=== PATIENT | female | born 1940 | race Caucasian/White ===

== ENCOUNTER 2017-06-06 07:32 | Observation (INO) | payer MEDICARE ==
[~2017-06-06] VITALS: Ht 175.3 cm; Wt 69.0 kg
[2017-06-06] VITALS (9 sets, daily range): BP systolic 122–152; BP diastolic 71–85; PULSE 63–72; RESP 14–18; O2SAT 93–98
--- NOTE | 2017-06-06 07:38 | ED.REPORT ---
HPI-Dizziness / Weakness Date of Service Jun 06, 2017 ED Provider: Romie Mann Patient is a 76 year old female with a hx of hyperlipidemia and hypothyroid who presents to the ED via EMS complaining of dizziness onset this morning. Pt reports she got up this morning feeling fine, went to make coffee, and then felt poorly. She then fell against her couch and vomited. Her dizziness is worse with opening her eyes and movement but is relieved by closing her eyes and staying still. She denies diaphoresis, chest pain, SOB, headache, focal weakness, numbness, confusion, slurred speech, cough, hematuria, hematochezia, hematemesis, ear pain, or any other symptoms. She received 8mg of Zofran en route. Nursing Notes Stated Complaint: VERTIGO Nursing Notes Reviewed: Yes (Araca not reconciled) Allergies: Coded Allergies: No Known Allergies (Unverified , 06/06/17) Scheduled Levothyroxine (Levothyroxine) 25 Mcg Tablet 25 MCG PO MORNING Lovastatin (Lovastatin) 40 Mg Tablet 40 MG PO QPM Oxybutynin Chloride (Oxybutynin Chloride) 5 Mg Tablet 5 MG PO MORNING Scheduled PRN Estrogens Conjugated (Premarin) 1 Gm Vagcream 1 APPLIC VAGINAL PRN Vaginal discomfort General Time Seen by MD: 07:39 Chief Complaint Dizzy Hx Obtained From: Patient, EMS Arrived By: Ambulance Onset Occurred: Just prior to arrival Symptom Duration: Since onset Severity: Current: No pain currently Severity: Maximum: No pain Associated with: Reports: Vomiting Pertinent Negative: Pt denies other symptoms Similar Sx Previous: No Past Medical History Past Medical History Hypothyroid hyperlipidemia Past Surgical History Reports: Hysterectomy Smoking History Never Smoker Social History Alcohol Use: Denies alcohol use Drug Use: Denies drug use Other Social History: Ambulatory Status Independent Review of Systems Ears / Nose / Throat: Denies: Earache bilateral Respiratory: Denies: Non-productive cough, Shortness of breath Cardiovascular: Denies: Chest pain GI: Reports: Nausea, Vomiting, Denies: Hematemesis, Hematochezia Skin: Denies Diaphoresis Neurologic: Reports: Dizziness, Denies: Confusion, Focal weakness, Headache, Numbness, Slurred speech Complete sys rev & neg: except as marked. Female: Denies: Hematuria Physical Exam Initial Vital Signs Vital Signs (First) Date Time Temp Pulse Resp B/P Pulse Ox O2 Delivery O2 Flow Rate FiO2 06/06/17 07:47 36.4 66 17 122/71 95 Room Air Initial VS: Reviewed Neck: Supple Abdomen / GI: Soft, Non-tender Skin: Warm, Dry Psychiatric: Mood/affect normal, Behavior normal, Normal thought content General/Constitutional: Awake, Alert Holding very still, eyes closed, clutching an emesis bag Head / Eyes: Atraumatic, Normocephalic Very trace lateral nystagmus bilaterally Respiratory / Chest: Atraumatic, Breath sounds NL, Breath sounds = bilat, No respiratory distress Cardiovascular: Heart rate NL, Regular rhythm, Heart sounds NL Neurologic: Oriented X3, Speech NL, No motor deficits, No sensory deficits, CN II - XII intact Interpretation & Diagnostics Lab Results Interpretation Result Diagram: 06/06/17 0755 06/06/17 0755 Test 06/06/17 07:55 White Blood Count 6.1th/mm3 (3.8-10.1) Red Blood Count 4.59mil/mm3 (3.90-5.20) Hemoglobin 14.1g/dL (12.0-15.6) Hematocrit 42.3% (35.0-46.0) Mean Corpuscular Volume 92.2fL (81-100) Mean Corpuscular Hemoglobin 30.7pg (27.0-35.0) Mean Corpuscular Hemoglobin Concent 33.3% (32.0-37.0) Red Cell Distribution Width 12.5% (12.3-15.4) Platelet Count 212bil/L (150-400) Neutrophils (%) (Auto) 23.5% (40-74) Lymphocytes (%) (Auto) 54.2% (14-46) Monocytes (%) (Auto) 17.6% (4-12) Eosinophils (%) (Auto) 3.9% (0-5) Basophils (%) (Auto) 0.8% (0-3) Sodium Level 140mEq/L (134-144) Potassium Level 3.5mEq/L (3.5-5.2) Chloride Level 102mEq/L (97-108) Carbon Dioxide Level 21mmol/L (18-29) Blood Urea Nitrogen 17mg/dL (8-27) Creatinine 0.75mg/dL (0.57-1.00) Estimat Glomerular Filtration Rate 108mL/min (>59) Glucose Level 147mg/dL (60-99) Calcium Level 9.6mg/dL (8.5-10.1) Total Bilirubin 0.3mg/dL (0.0-1.2) Aspartate Amino Transf (AST/SGOT) 35U/L (0-50) Alanine Aminotransferase (ALT/SGPT) 27U/L (0-32) Alkaline Phosphatase 76U/L (25-165) Total Protein 7.3g/dL (6.4-8.4) Albumin 4.1g/dL (3.4-5.0) Lab Results Interpretation: cbc nl cmp nl CT Head Interpretation IMPRESSION: No acute process. No explanation for vertigo. Dictated by: Lacie Brice M.D. on 06/06/2017 at 8:21 Approved by: Lacie Brice M.D. on 06/06/2017 at 8:22 Study: Head CT no contrast Interpretation / Wet Read by: Interpret - Radiologist Re-Eval/Medical Decision Med Decision/Clinical Course This is a 76F who presents with sudden onset of vertigo with dizziness, nausea, and inability to ambulate. She fell into the couch trying to ambulate - but suffered no injury. She reports feeling better if she holds still and keeps her eyes closed. She denies MELCHOR, anticoagulant use, or focal deficit. She denies ETOH or drugs. She denies any recent URI or ear symptoms. On exam she is holding still with eyes closed, but has no motor symptoms, CN II- XII is negative, but she can not turn her head to either side or sit up without precipitating symptoms. Her ear exam is normal. She received meclizine PO and parenteral promethazine and benadryl, and stated she felt much better. But attempts to road test were met with recurrent symptoms just trying to sit the patient up. At this point given persistance of severe symptoms, admission is warranted. She is receiving lorazepam for additional support. CT Brain and lab work is mormal. MRI may be considered in AM (It is Wednesday), and case has been discussed with hospitalist. Source of Hx: Old records, EMS Re-Evaluation/Progress #1: Time of Eval: 10:06 Re-Evaluation/Progress Note: Rechecked pt who is no longer nauseous. She is feeling slightly better now. Discussed plan for road test and possible plan for admission. Patient understands and agrees with plan. All questions addressed at this time. Re-Evaluation/Progress #2: Time of Eval: 10:10 Re-Evaluation/Progress Note: Pt failed her road test and could not get out of bed. Will be admitted. Consultation : Referral / Consult Name: Deanne Kapoor MD Consulted With: Hospitalist Call Returned at: 10:17 Second Vp Hr Assessment: Will see patient, Agrees with eval, Agrees with plan, Accepts admit Note: Discussed pt's case. Accepts admit Differential Diagnosis: Positive: Vertigo, peripheral, Negative: Acute coronary syndrome, Anemia, Carbon monoxide poisoning, Cerebrovascular accident, Dehydration, Dysrhythmia, Electrolyte disorder, Heat exhaustion, Heat stroke, Hyperventilation syndrome, Hypoglycemia, Intracranial bleed, Labyrinthitis, Meniere's disease, Migraine disorder, Sepsis, Subarachnoid hemorrhage, Tick paralysis Counseled Regarding: Diagnosis, Lab results, Need for admission Patient Discharge & Departure Impression: Primary Impression: Vertigo Disposition: ADMITTED TO HOSPITAL Discharge Condition All VS Reviewed: Yes Condition: Stable Referrals: Vonnie Ness MD (PCP) Tavon Attestation Portions of this note were transcribed by Manfred Smith. I, Dr. Mann personally performed the history, physical exam and medical decision-making; I reviewed and confirmed the accuracy of the information in the transcribed note. Signed by: Tavon Naranjo, 06/06/17 Vonnie Ness MD, Matthew F MD Jun 06, 2017 07:38 MANFRED SMITH Jun 06, 2017 07:44
[2017-06-06] MEDS ORDERED: Promethazine Inj 12.5 MG in Dextrose 5%-Pha MIX 50 ML IV ONE (07:50)
[2017-06-06 08:03] LABS: BASOPHILS % (AUTO) 0.8 % (0-3); EOSINOPHILS % (AUTO) 3.9 % (0-5); MONOCYTES % (AUTO) 17.6 % (4-12); Mean Corpuscular Hemoglobin 30.7 pg (27.0-35.0); Mean Corpuscular Volume 92.2 fL (81-100); NEUTROPHILS % (AUTO) 23.5 % (40-74); Platelet Count 212 bil/L (150-400)
--- NOTE | 2017-06-06 08:24 | DRSVH ---
PROCEDURE: CT BRAIN WITHOUT CONTRAST ([id number]) INDICATIONS: vertigo TECHNIQUE: Noncontrast 4.5 mm thick angled axial sections acquired from the foramen magnum to the vertex, with c oronal reformats. COMPARISON: None. FINDINGS: Image quality: Excellent. CSF spaces: Basal cisterns are patent. No extra-axial fluid collections. The ventricles are symmet mick in size and shape. Brain: No intracranial bleeds or masses. There is cerebral volume loss for age, with resultant vent ricular and sulcal prominence. There are periventricular and deep white matter chronic small vessel ischemic changes. There is intracranial internal carotid artery atherosclerosis. Skull and face: Calvarium and visualized facial bones appear intact, without suspicious lesions. Sinuses: Visualized sinuses and mastoids are clear. IMPRESSION: No acute process. No explanation for vertigo. Dictated by: Lacie Brice M.D. on 06/06/2017 at 8:21 Approved by: Lacie Brice M.D. on 06/06/2017 at 8:22
[2017-06-06] MEDS ORDERED: OXYB5TAB10 PO (10:15)
[2017-06-06] MEDS ORDERED: LOVA40TA PO (10:15)
[2017-06-06] MEDS ORDERED: LEVO25TA5 PO (10:15)
[2017-06-06] MEDS ORDERED: PREC VAGINAL (10:15)
[2017-06-06] MEDS: 0.9% Sodium Chloride 1,000 ML IV SCH ×2 (11:19→22:00)
[2017-06-06] MEDS ORDERED: Alum-Mag Hydrox-Simeth 30 mL Suspension PO PRN ×2 (11:20→13:45)
[2017-06-06] MEDS ORDERED: Ondansetron 2 mg/mL 2 mL Inj IVPUSH PRN ×2 (11:20→13:45)
--- NOTE | 2017-06-06 11:30 | NUR ---
admitted to room 1017 from ED alert, oriented, states "only dizzy when I get up". VSS, BP136/79, denies nausea at this time, but feels drowsy, received Lorazepam in ER
[2017-06-06] MEDS ORDERED: Polyethylene Glycol (PEG) 17 Gm Powder PO PRN (13:45)
--- NOTE | 2017-06-06 13:56 | PCM.HPMED ---
Subjective Date of Service Jun 06, 2017 Primary Provider: Admitting Physician: Deanne Kapoor MD Primary Care Physician: Vonnie Ness MD Attending Physician: Deanne Kapoor MD Admit Status: From the Emergency Department, 23-Hour Observation, Admit to [place] Team, Remote Telemetry Chief Complaint: Acute onset vertigo History of Present Illness: This 76-year-old female whose past medical history is significant for hyperlipidemia and hypothyroidism. She was in her usual state of health woke up this morning and was doing fine was sitting in a chair doing some computer work and started to with the turning of her head have vertigo. She had some nausea with the vertigo. She has never had episodes like this before. If she was still did not seem to occur but movement of the head in either direction would elicit it. She notes no numbness tingling or weakness. Her evaluation in the emergency room included CT of head without contrast which did not show any acute abnormalities. He denies any chest pain or headaches. Eyes any shortness of breath or lightheadedness. She has had no alteration in bowel movements. She has had no change in her medications. She did try to stand up with this occurred and fell into her couch and had no injury sustained. Review of Systems: She denies any fevers or chills. All other review of systems are reviewed and are negative except for as in history of present illness. Allergies Coded Allergies: No Known Allergies (Unverified , 06/06/17) Home Medications Levothyroxine 25 g by mouth daily Lovastatin 40 mg by mouth daily Oxybutynin 5 mg by mouth in a.m. daily Premarin cream intravaginally when necessary PMH Hypothyroidism hyperlipidemia Surgical History Status post hysterectomy Family History Father with a history of heart attack at the age of 80 Mother of colon cancer at the age of 91 Social History Hx Alcohol Use: No Hx Substance Use: No Hx Tobacco Use: No Smoking Status: Never Smoker Living Arrangement: with Family Exam Vital Signs Vital Sign - Last Date Time Temp Pulse Resp B/P Pulse Ox O2 Delivery O2 Flow Rate FiO2 06/06/17 13:31 36.8 72 18 152/85 96 Room Air Exam Constitutional: 76-year-old female who is appears in no acute distress Head: Normocephalic atraumatic Eyes: PERRLA DC EOMI Mouth: No lesions Neck: Carotids this over 4 without bruits Chest: Clear to auscultation Cor: Regular rate and rhythm S1-S2 without murmur Abdomen: Soft nontender bowel sounds present Extremities: No pedal edema Skin: No rashes Psych: Mood and affect are appropriate Neuro: She is alert and oriented 3, motor strength is intact bilaterally cranial nerves II through XII are intact Lab and Diagnostics Labs Laboratory Tests 72 Hours Test 06/06/17 07:55 White Blood Count 6.1th/mm3 (3.8-10.1) Red Blood Count 4.59mil/mm3 (3.90-5.20) Hemoglobin 14.1g/dL (12.0-15.6) Hematocrit 42.3% (35.0-46.0) Mean Corpuscular Volume 92.2fL (81-100) Mean Corpuscular Hemoglobin 30.7pg (27.0-35.0) Mean Corpuscular Hemoglobin Concent 33.3% (32.0-37.0) Red Cell Distribution Width 12.5% (12.3-15.4) Platelet Count 212bil/L (150-400) Neutrophils (%) (Auto) 23.5% (40-74) Lymphocytes (%) (Auto) 54.2% (14-46) Monocytes (%) (Auto) 17.6% (4-12) Eosinophils (%) (Auto) 3.9% (0-5) Basophils (%) (Auto) 0.8% (0-3) Sodium Level 140mEq/L (134-144) Potassium Level 3.5mEq/L (3.5-5.2) Chloride Level 102mEq/L (97-108) Carbon Dioxide Level 21mmol/L (18-29) Blood Urea Nitrogen 17mg/dL (8-27) Creatinine 0.75mg/dL (0.57-1.00) Estimat Glomerular Filtration Rate 108mL/min (>59) Glucose Level 147mg/dL (60-99) Calcium Level 9.6mg/dL (8.5-10.1) Total Bilirubin 0.3mg/dL (0.0-1.2) Aspartate Amino Transf (AST/SGOT) 35U/L (0-50) Alanine Aminotransferase (ALT/SGPT) 27U/L (0-32) Alkaline Phosphatase 76U/L (25-165) Total Protein 7.3g/dL (6.4-8.4) Albumin 4.1g/dL (3.4-5.0) Result Diagram: 06/06/17 0755 06/06/17 0755 X-Rays, CTs and MRIs PROCEDURE: CT BRAIN WITHOUT CONTRAST ([id number]) INDICATIONS: vertigo TECHNIQUE: Noncontrast 4.5 mm thick angled axial sections acquired from the foramen magnum to the vertex, with coronal reformats. COMPARISON: None. FINDINGS: Image quality: Excellent. CSF spaces: Basal cisterns are patent. No extra-axial fluid collections. The ventricles are symmetric in size and shape. Brain: No intracranial bleeds or masses. There is cerebral volume loss for age , with resultant ventricular and sulcal prominence. There are periventricular and deep white matter chronic small vessel ischemic changes. There is intracranial internal carotid artery atherosclerosis. Skull and face: Calvarium and visualized facial bones appear intact, without suspicious lesions. Sinuses: Visualized sinuses and mastoids are clear. IMPRESSION: No acute process. No explanation for vertigo. Dictated by: Lacie Brice M.D. on 06/06/2017 at 8:21 Approved by: Lacie Brice M.D. on 06/06/2017 at 8:22 12-lead ECG EKG reviewed by myself is pending at the time of this dictation Assessment & Plan #Vertigo, acute, present on admission -We will treat with meclizine when necessary, Ativan when necessary -Check MRI stroke protocol in a.m. -PT consultation in a.m. after MRI -Initiate ASA 81 mg by mouth daily for possibility of CVA # Hypothyroidism, chronic, present on admission -Check TSH and thyroid panel #HyperLipidemia, acute, present on admission -We will go ahead and continue with her lovastatin -Check fasting a.m. lipid panel # DVT prophylaxis -Subcutaneous prophylactic Lovenox # CODE STATUS -Full code Pain Evaluation: Adequate Pain Control VTE Prophylaxis: Sub-Q Enoxaparin Resuscitation Status: CPR: Attempt Resuscitation Time spent 60 minute Deanne Kapoor MD Jun 06, 2017 13:56
[2017-06-06] MEDS ORDERED: LORazepam 1 mg Tablet PO PRN (14:10)
--- NOTE | 2017-06-06 16:34 | DRSVH ---
PROCEDURE: MRI STROKE PROTOCOL ([id number]) Pre- and post-contrast brain MRI, non-contrast brain MR angiogram, pre- and postcontrast neck MR mell ogram INDICATIONS: vertigo TECHNIQUE: Brain: Noncontrast axial T1 spin echo, axial T2 fast spin echo, sagittal and axial FLAIR, coronal T2 fast spin echo, axial gradient echo, axial diffusion and ADC through the brain. After the administr ation of contrast, axial 3D VIBE of the cranial vasculature and brain. Brain MRA: Non-contrast 3-D time of flight MR angiogram, with multiple lsnhvnz-vewowjcke-xicewxftmc (MIP) reformats performed. Neck MRA: Axial and sagittal TruFISP through the neck. Coronal dynamic MR angiogram during administ ration of contrast in the arterial and venous phases, with 3-dimenstional sfbqmwl-omzvgsvyv-aqenldzka n (MIP) reformats constructed from subtraction images. COMPARISON: Comparison head CT 06/06/17 reviewed. FINDINGS: Image quality: Excellent. BRAIN: CSF spaces: Ventricles are normal in size and shape. Basal cisterns are patent. No extra-axial flu id collections. Brain: No intracranial bleeds or mass effects. Bueno-white matter interface is normal. Diffusion we ighted images show no acute ischemic insults. Brainstem appears normal. Normal intravascular flow v oids are present. No abnormal intracranial enhancement. Skull and face: Calvarial marrow signal is normal. Orbits appear normal. Sinuses: Sinuses and mastoids are clear. BRAIN MR ANGIOGRAM: Anterior circulation: Intracranial internal carotid arteries are normal in size and enhancement. Th e flow within the paired anterior cerebral arteries is normal and symmetric. The flow within the mid dle cerebral arteries is normal and symmetric. The anterior communicating artery is seen. No stenos es, occlusions, or aneurysms. Posterior circulation: The visualized portions of the vertebral arteries demonstrate normal caliber, and join to form a normal appearing basilar artery. The flow within the posterior cerebral arteries is normal and symmetric. No stenoses, occlusions, or aneurysms. NECK MR ANGIOGRAM: Carotids: Great vessels demonstrate a conventional anatomy as they arise from the aortic arch. The origins of the common carotid arteries appear patent. The calibers and courses of both common caroti d arteries are normal. The bifurcation regions appear normal bilaterally. The internal carotid daryl gabbi demonstrate normal course and caliber. Posterior circulation: The origins of the vertebral arteries appear patent. More superior portions of both vertebral arteries demonstrate normal course and caliber, and join to form a normal appearing basilar artery. Miscellaneous: Subclavian arteries appear patent. Pre-contrast images through the neck show no soft tissue abnormalities except at the right vallecula where a 1.3 cm rounded fluid-rich masslike struct ure is present. IMPRESSION: BRAIN MRI: Normal for age, source of vertigo is not found. BRAIN MR ANGIOGRAM: Normal intracranial MR angiogram. NECK MR ANGIOGRAM: The cervical MR angiogram shows no vascular abnormality but there is a 1.3 cm rou nded masslike structure superimposed on the anatomic position of the right vallecula. It is possible that this simply represents a mucosal cyst but the imaging characteristics of the abnormality are in completely evaluated (it was identified on the cattle dealer views for the MR cervical angiogram). Direct vi sualization by laryngoscopy would be recommended and depending on the clinical status contrast-enhanc ed CT scanning through this area also likely is warranted. The estimate of stenosis included in the report of the imaging study was calculated using the NASCET method Dictated by: Kota Wheeler M.D. on 06/06/2017 at 16:22 Approved by: Kota Wheeler M.D. on 06/06/2017 at 16:33
--- NOTE | 2017-06-06 16:43 | NUR ---
ataxia? when pt stands to get on commode, she has lack of coordination. She is so wobbly that staff needs to hold onto her so she doesn't fall.
--- NOTE | 2017-06-06 18:56 | NUR ---
TOM explained and signed. Copy of TOM and Medicare self administered medication information given to pt.
[2017-06-07 04:36] VITALS: BP 116/71; PULSE 64; RESP 16; O2SAT 97
--- NOTE | 2017-06-07 06:14 | NUR ---
neuro: pt. ambulated to bathroom this morning with minimal stand-by assist, balance and gait were steady, pt. said she felt like she could walk without having vertigo and losing her balance.
[2017-06-07] MEDS: 0.9% Sodium Chloride 1,000 ML IV SCH (07:19)
[2017-06-07 07:53] VITALS: BP 154/84; PULSE 61; RESP 20; O2SAT 95
--- NOTE | 2017-06-07 08:54 | PCM.DIMED ---
Discharge Instructions Date of Service Jun 07, 2017 Dates of Hospitalization Jun 06, 2017 at 10:24 Discharge Diagnosis Discharge Diagnosis Acute vertigo of inner ear etiology Test Results Test Results Patient did have a questionable abnormality possible mucosal cysts seen in the vallecula epiglottis and recommend further outpatient workup per PCP Diet Discharge Diet: Heart Healthy Activity Discharge Activity: Other (progress as tolerated) Call your provider Call your provider for: Fever or Chills, Shortness of breath, Bleeding, Chest pain, Vomitting, Excessive diarrhea, Weakness (unilateral) Patient Instructions Follow-up Provider: Vonnie Ness MD Follow-up with PCP in: Other (in 4-5 days sooner if problems) Deanne Kapoor MD Jun 07, 2017 08:54
[2017-06-07] MEDS ORDERED: MECL-114 PO (08:55)
--- NOTE | 2017-06-07 09:04 | PCM.DC.MED ---
Discharge Summary Date of Service Jun 07, 2017 Dates of Hospitalization Date of Hospital Admission Jun 06, 2017 at 10:24 Date of Discharge: Jun 07, 2017 Providers: Admitting Physician: Deanne Kapoor MD Primary Care Physician: Vonnie Ness MD Attending Physician: Deanne Kapoor MD Diagnosis at Time of Discharge Diagnosis at Time of Discharge Acute vertigo of inner ear etiology Procedures XRay, CTs & MRIs PROCEDURE: CT BRAIN WITHOUT CONTRAST ([id number]) INDICATIONS: vertigo TECHNIQUE: Noncontrast 4.5 mm thick angled axial sections acquired from the foramen magnum to the vertex, with coronal reformats. COMPARISON: None. FINDINGS: Image quality: Excellent. CSF spaces: Basal cisterns are patent. No extra-axial fluid collections. The ventricles are symmetric in size and shape. Brain: No intracranial bleeds or masses. There is cerebral volume loss for age , with resultant ventricular and sulcal prominence. There are periventricular and deep white matter chronic small vessel ischemic changes. There is intracranial internal carotid artery atherosclerosis. Skull and face: Calvarium and visualized facial bones appear intact, without suspicious lesions. Sinuses: Visualized sinuses and mastoids are clear. IMPRESSION: No acute process. No explanation for vertigo. Dictated by: Lacie Brice M.D. on 06/06/2017 at 8:21 Approved by: Lacie Brice M.D. on 06/06/2017 at 8:22 PROCEDURE: MRI STROKE PROTOCOL ([id number]) Pre- and post-contrast brain MRI, non-contrast brain MR angiogram, pre- and postcontrast neck MR angiogram INDICATIONS: vertigo TECHNIQUE: Brain: Noncontrast axial T1 spin echo, axial T2 fast spin echo, sagittal and axial FLAIR, coronal T2 fast spin echo, axial gradient echo, axial diffusion and ADC through the brain. After the administration of contrast, axial 3D VIBE of the cranial vasculature and brain. Brain MRA: Non-contrast 3-D time of flight MR angiogram, with multiple maximum- intensity-projection (MIP) reformats performed. Neck MRA: Axial and sagittal TruFISP through the neck. Coronal dynamic MR angiogram during administration of contrast in the arterial and venous phases, with 3-dimenstional jxdmllf-sysjpqiem-jrdefzmtim (MIP) reformats constructed from subtraction images. COMPARISON: Comparison head CT 06/06/17 reviewed. FINDINGS: Image quality: Excellent. BRAIN: CSF spaces: Ventricles are normal in size and shape. Basal cisterns are patent. No extra-axial fluid collections. Brain: No intracranial bleeds or mass effects. Bueno-white matter interface is normal. Diffusion weighted images show no acute ischemic insults. Brainstem appears normal. Normal intravascular flow voids are present. No abnormal intracranial enhancement. Skull and face: Calvarial marrow signal is normal. Orbits appear normal. Sinuses: Sinuses and mastoids are clear. BRAIN MR ANGIOGRAM: Anterior circulation: Intracranial internal carotid arteries are normal in size and enhancement. The flow within the paired anterior cerebral arteries is normal and symmetric. The flow within the middle cerebral arteries is normal and symmetric. The anterior communicating artery is seen. No stenoses, occlusions, or aneurysms. Posterior circulation: The visualized portions of the vertebral arteries demonstrate normal caliber, and join to form a normal appearing basilar artery. The flow within the posterior cerebral arteries is normal and symmetric. No stenoses, occlusions, or aneurysms. NECK MR ANGIOGRAM: Carotids: Great vessels demonstrate a conventional anatomy as they arise from the aortic arch. The origins of the common carotid arteries appear patent. The calibers and courses of both common carotid arteries are normal. The bifurcation regions appear normal bilaterally. The internal carotid arteries demonstrate normal course and caliber. Posterior circulation: The origins of the vertebral arteries appear patent. More superior portions of both vertebral arteries demonstrate normal course and caliber, and join to form a normal appearing basilar artery. Miscellaneous: Subclavian arteries appear patent. Pre-contrast images through the neck show no soft tissue abnormalities except at the right vallecula where a 1.3 cm rounded fluid-rich masslike structure is present. IMPRESSION: BRAIN MRI: Normal for age, source of vertigo is not found. BRAIN MR ANGIOGRAM: Normal intracranial MR angiogram. NECK MR ANGIOGRAM: The cervical MR angiogram shows no vascular abnormality but there is a 1.3 cm rounded masslike structure superimposed on the anatomic position of the right vallecula. It is possible that this simply represents a mucosal cyst but the imaging characteristics of the abnormality are incompletely evaluated (it was identified on the gig tender views for the MR cervical angiogram). Direct visualization by laryngoscopy would be recommended and depending on the clinical status contrast-enhanced CT scanning through this area also likely is warranted. The estimate of stenosis included in the report of the imaging study was calculated using the NASCET method Dictated by: Kota Wheeler M.D. on 06/06/2017 at 16:22 Approved by: Kota Wheeler M.D. on 06/06/2017 at 16:33 ECG 12 Lead EKG reviewed by myself is pending at the time of this dictation Brief History This 76-year-old female whose past medical history is significant for hyperlipidemia and hypothyroidism. She was in her usual state of health woke up this morning and was doing fine was sitting in a chair doing some computer work and started to with the turning of her head have vertigo. She had some nausea with the vertigo. She has never had episodes like this before. If she was still did not seem to occur but movement of the head in either direction would elicit it. She notes no numbness tingling or weakness. Her evaluation in the emergency room included CT of head without contrast which did not show any acute abnormalities. He denies any chest pain or headaches. Eyes any shortness of breath or lightheadedness. She has had no alteration in bowel movements. She has had no change in her medications. She did try to stand up with this occurred and fell into her couch and had no injury sustained. Hospital Course #Vertigo, acute, present on admission -We will treat with meclizine when necessary, -Check MRI stroke protocol showed no significant abnormalities although please patient will need outpatient evaluation for questionable abnormality in the right vallecula epiglottic. -PT consultation to be done prior to patient leaving the hospital today for treatment of vertigo of inner ear etiology -Patient's symptoms did improve during her hospital course and will be able to be discharged this morning of June 07 # Hypothyroidism, chronic, present on admission -Continue home medication regimen #HyperLipidemia, acute, present on admission -We will go ahead and continue with her lovastatin -Check fasting a.m. lipid panel and see results above # DVT prophylaxis -Subcutaneous prophylactic Lovenox # CODE STATUS -Full code Exam Vital Signs (Last) Date Time Temp Pulse Resp B/P Pulse Ox O2 Delivery O2 Flow Rate FiO2 06/07/17 07:53 36.6 61 20 154/84 95 Room Air Exam Constitutional: 76-year-old female in no acute distress Head: Normocephalic atraumatic Chest: Clear to auscultation Cor: Regular rate and rhythm S1-S2 Abdomen: Soft nontender bowel sounds present Extremities: No pedal edema Psych: Mood and affect are appropriate Skin: No rashes Neuro: Alert and oriented 3, motor strength is intact bilaterally Test 06/06/17 07:55 06/07/17 05:12 White Blood Count 6.1th/mm3 (3.8-10.1) Red Blood Count 4.59mil/mm3 (3.90-5.20) Hemoglobin 14.1g/dL (12.0-15.6) Hematocrit 42.3% (35.0-46.0) Mean Corpuscular Volume 92.2fL (81-100) Mean Corpuscular Hemoglobin 30.7pg (27.0-35.0) Mean Corpuscular Hemoglobin Concent 33.3% (32.0-37.0) Red Cell Distribution Width 12.5% (12.3-15.4) Platelet Count 212bil/L (150-400) Neutrophils (%) (Auto) 23.5% (40-74) Lymphocytes (%) (Auto) 54.2% (14-46) Monocytes (%) (Auto) 17.6% (4-12) Eosinophils (%) (Auto) 3.9% (0-5) Basophils (%) (Auto) 0.8% (0-3) Sodium Level 140mEq/L (134-144) Potassium Level 3.5mEq/L (3.5-5.2) Chloride Level 102mEq/L (97-108) Carbon Dioxide Level 21mmol/L (18-29) Blood Urea Nitrogen 17mg/dL (8-27) Creatinine 0.75mg/dL (0.57-1.00) Estimat Glomerular Filtration Rate 108mL/min (>59) Glucose Level 147mg/dL (60-99) Calcium Level 9.6mg/dL (8.5-10.1) Total Bilirubin 0.3mg/dL (0.0-1.2) Aspartate Amino Transf (AST/SGOT) 35U/L (0-50) Alanine Aminotransferase (ALT/SGPT) 27U/L (0-32) Alkaline Phosphatase 76U/L (25-165) Total Protein 7.3g/dL (6.4-8.4) Albumin 4.1g/dL (3.4-5.0) Triglycerides Level 96mg/dL (0-149) Cholesterol Level 158mg/dL (100-199) LDL Cholesterol, Calculated 74.800mg/dL (0-99) VLDL Cholesterol 19.200mg/dL HDL Cholesterol 64mg/dL (>39) Cholesterol/HDL Ratio 2.47 (0.0-4.4) Discharge Medications Discharge Medications Levothyroxine (Levothyroxine) 25 Mcg Tablet 25 MCG PO MORNING (Reported) Lovastatin (Lovastatin) 40 Mg Tablet 40 MG PO QPM (Reported) Oxybutynin Chloride (Oxybutynin Chloride) 5 Mg Tablet 5 MG PO MORNING (Reported ) As needed Estrogens Conjugated (Premarin) 1 Gm Vagcream 1 APPLIC VAGINAL PRN Vaginal discomfort (Reported) Meclizine (Bonine) 25 Mg Tab.chew 25 MG PO 3 times a day PRN PRN vertigo Prescribed by: DEANNE KAPOOR MD Followup Plan Disposition: Home Follow-up plan Patient will also need outpatient follow-up per primary care provider regarding possible abnormality in the right vallecula epiglottic which may be mucosal cyst. Please see MR imaging report as above. Discharge Diet: Heart Healthy Discharge Activity: Other (progress as tolerated) Follow-up Provider: Vonnie Ness MD Follow-up with PCP in: Other (in 4-5 days sooner if problems) Time spent 45 minutes copies to: Vonnie Ness MD, Cheryl A MD Jun 07, 2017 09:04
[2017-06-07 10:00] VITALS: PULSE 80
--- NOTE | 2017-06-07 11:21 | NUR ---
Evaluation completed. Please go to "Notes" then click on "Assessments and Notes" (bottom left corner of screen). Then select appropriate discipline tab on top of screen.
--- NOTE | 2017-06-07 14:46 | NUR ---
Discharge Patient DC'd home via private vehicle with her husbandat 1210. PT eval completed and patient is understanding of her follow up plan and when to use the Meclizine. She will call to schedule her follow up with her PCP and feels safe going home. Dizziness has resolved at this point.
--- NOTE | 2017-06-07 15:48 | NUR ---
Social Work: Attempted Initial Assessment/Discharge/Multidisciplinary Rounds D: EMR reviewed. Pt is a 76 y/o female admitted [facility] with a readmit risk score of 0 for vertigo. Pt discharged prior to SW being able to see pt. Pt discussed in multidisciplinary rounds and is medically stable for discharge home, no discharge needs per MD. Pt's insurance is Medicare and [employer] Supplemental. Pt's NOK is spouse Eduardo Enriquez [phone]. A: Pt who is independent at baseline P: Pt discharge home via POV today prior to SW assessment. MD indicated pt does not have discharge needs in multidisciplinary rounds. KIM Mares
== END 2017-06-07 12:45 | disposition home or self-care (01) ==
LOC: SED 07:32 → EDBD 07:32 → OSC 10:24
PROVIDERS: ADMIT Specialist; ATTEND Specialist
DX: H81.319 Aural vertigo, unspecified ear (principal); E78.5 Hyperlipidemia, unspecified; E03.9 Hypothyroidism, unspecified; R11.0 Nausea; Z79.82 Long term (current) use of aspirin
CPT/HCPCS: 36415; 70450; 70549; 70553; 80053; 80061; 85025; 93005; 96365; 96375; 97161; 99285; A9585; G0378; J1200; J1650; J2060; J2550; J7030